=== PATIENT | female | born 1945 | race African-American/Black ===

== ENCOUNTER 2024-12-16 10:15 | Outpatient (CLI) | payer MEDICARE | END 2024-12-16 10:16 | disposition home or self-care (01) | LOC: PET 10:15 | PROVIDERS: ATTEND Internal Medicine | DX: C90.00 Multiple myeloma not having achieved remission (principal); C79.51 Secondary malignant neoplasm of bone; R93.7 Abnormal findings on diagnostic imaging of other parts of musculoskeletal system | CPT/HCPCS: 78815; A9552 ==